=== PATIENT | female | born 1945 | race Caucasian/White ===

== ENCOUNTER → 2016-11-11 | Outpatient (CLI) | payer MEDICARE, OTHER | END | disposition home or self-care (01) | LOC: GMA 14:29 | PROVIDERS: ATTEND Nurse Practitioner Family | DX: R07.9 Chest pain, unspecified (principal) ==

== ENCOUNTER → 2016-12-16 | Outpatient (CLI) | payer MEDICARE, OTHER | END | disposition home or self-care (01) | LOC: GMAH 10:15 | PROVIDERS: ATTEND Family Medicine | DX: E78.00 Pure hypercholesterolemia, unspecified (principal) ==

== ENCOUNTER → 2017-09-01 | Outpatient (CLI) | payer MEDICARE, OTHER ==
--- NOTE | 2017-09-03 15:12 | MAM ---
EXAM DESCRIPTION: 3D Screening BILATERAL : Digital Mammography. CLINICAL HISTORY: 72 years Female SCREENING . No complaints. Sister with breast cancer. Postmenopausal. Taking HRT 5 or more years ago.. COMPARISON: 2-D digital screening bilateral studies on 08/25/2016 and 07/24/2015. Report from prior examination also reviewed. TECHNIQUE: Bilateral CC and MLO projection full-field images, 3-D tomosynthesis digital mammographic technique. Also bilateral synthesized CC/ MLO full-field images. CAD not utilized. FINDINGS: The breast parenchymal density pattern is: Heterogeneously dense breast tissue, which may obscure small masses. No skin thickening or nipple retraction bilateral solitary microcalcifications and coarse calcification in the left breast. Bilateral vascular calcifications. No focal, stellate mass or density, focal asymmetry , and no suspicious microcalcifications bilaterally. Stable mammograms compared to prior studies, taking into account differences in mammographic technique IMPRESSION: BI-RADS CATEGORY: 2 - BENIGN FINDINGS. FOLLOW UP: Routine digital bilateral screening, one year interval from August 2017. Written communication explaining the IMPRESSION and follow-up, will be mailed to the patient and referring health care provider. According to the [employer], yearly mammograms are recommended starting at age 40 and continuing as long as a woman is in good health. Any breast change noted on a breast self-exam should be reported promptly to the patient's healthcare provider. Breast MRI is recommended for women with an approximately 20-25% or greater lifetime risk of breast cancer, including women with a strong family history of breast or ovarian cancer and women who have been treated for Hodgkin's disease. A negative mammographic report should not delay tissue diagnosis in patients with significant clinical history or physical findings. Extremely dense breast tissue limits the sensitivity of digital mammography. Electronically signed by: David Corea MD 09/03/2017 3:10 PM [facility]
== END ==
LOC: MAMMO 11:14
PROVIDERS: ATTEND Family Medicine
DX: Z12.31 Encounter for screening mammogram for malignant neoplasm of breast (principal)
CPT/HCPCS: 77063; G0202

== ENCOUNTER → 2017-12-22 | Outpatient (CLI) | payer MEDICARE, OTHER | END | disposition home or self-care (01) | LOC: GMAH 11:59 | PROVIDERS: ATTEND Family Medicine | DX: E78.2 Mixed hyperlipidemia (principal); E03.8 Other specified hypothyroidism ==

== ENCOUNTER → 2018-01-04 | Outpatient (CLI) | payer MEDICARE, OTHER ==
--- NOTE | 2018-01-04 09:45 | RAD ---
EXAM DESCRIPTION: Knee,Left Complete CLINICAL HISTORY: 72 years, Female, PAIN IN LEFT KNEE COMPARISON: None TECHNIQUE: 4 views of the left knee including standing views FINDINGS: No fracture or dislocation. Bones appear normally mineralized with normal trabecular pattern. Mild narrowing of the medial compartment on frontal view. Lateral view shows normal position of the patella. No patellar spurring or enthesopathy. No suprapatellar knee joint effusion. Normal contour of quadriceps and patellar tendons. No patellar subluxation on patellar sunrise view. There is mild lateral tilt of the patella. Mild posterior medial patellar spurring is present. IMPRESSION: Negative for fracture or dislocation. Electronically signed by: Rory Giordano MD 01/04/2018 9:43 AM CDT
--- NOTE | 2018-01-04 09:47 | RAD ---
EXAM DESCRIPTION: Pelvis CLINICAL HISTORY: 72 years Female, PAIN IN RIGHT HIP PAIN IN LEFT COMPARISON: None. TECHNIQUE: Single frontal x-ray view of pelvis and hips FINDINGS: No fracture. No dislocation. Bones appear mildly osteopenic. Degenerative changes at the pubic symphysis. Iliolumbar ligament calcification is incidentally noted. Degenerative changes are prominent in the facets at L4-5 and L5-S1. IMPRESSION: Negative for fracture or dislocation. Electronically signed by: Rory Giordano MD 01/04/2018 9:45 AM CDT
--- NOTE | 2018-01-04 09:49 | RAD ---
EXAM DESCRIPTION: Knee,Right Complete CLINICAL HISTORY: 72 years, Female, PAIN IN RIGHT KNEE COMPARISON: None TECHNIQUE: 4 views of the right knee including standing views FINDINGS: No fracture or dislocation. Bones appear mildly osteopenic with slightly prominent trabecular pattern. Mildly narrowed medial compartment on frontal view. Lateral view shows normal position of the patella. Minimal posterior superior patellar spurring. No suprapatellar knee joint effusion. Normal contour of quadriceps and patellar tendons. Mild lateral patellar tilt without significant subluxation on patellar sunrise view. Mild posterior medial spurring and lateral marginal spurring of the patella. IMPRESSION: Negative for fracture or dislocation. Mild degenerative changes as described. Electronically signed by: Rory Giordano MD 01/04/2018 9:47 AM CDT
== END ==
LOC: RAD 08:32
PROVIDERS: ATTEND Orthopaedic Surgery
DX: M25.561 Pain in right knee (principal); M25.562 Pain in left knee; M25.551 Pain in right hip; M25.552 Pain in left hip

== ENCOUNTER → 2018-09-27 | Outpatient (CLI) | payer MEDICARE, OTHER ==
--- NOTE | 2018-09-28 14:53 | MAM ---
EXAM DESCRIPTION: 3D Screening BILATERAL : Digital Mammography. CLINICAL HISTORY: 73 years Female SCREENING . No complaints or personal history of breast cancer. Sister with breast cancer. Childbirth. Postmenopausal. Taking HRT.. Lifetime risk of developing breast cancer (Tyrer-Cuzick model)(%): 7.3. COMPARISON: Bilateral screening digital breast tomosynthesis 09/06/2017. TECHNIQUE: Bilateral CC and MLO projection full-field images, digital tomosynthesis mammographic technique. Bilateral digital 2-D full-field MLO images. CAD not available for tomosynthesis or 2-D images. FINDINGS: The breast parenchymal density pattern is: Heterogeneously dense breast tissue, which may obscure small masses. No skin thickening or nipple retraction. Large coarse calcifications associated with a soft tissue mass, posterior third of the left breast. Most likely a degenerating fibroadenoma, stable since the prior study. Small vascular calcifications. No new focal, stellate mass or density, focal asymmetry , and no suspicious microcalcifications bilaterally. Stable mammograms compared to prior study. IMPRESSION: Benign exam. BIRAD CATEGORY: 2 BENIGN FINDINGS. RECOMMENDATIONS: FOLLOW UP: Routine digital bilateral mammographic screening, one year interval from August 2017. Written communication explaining the IMPRESSION and follow-up, will be mailed to the patient and referring health care provider. According to the [employer], yearly mammograms are recommended starting at age 40 and continuing as long as a woman is in good health. Any breast change noted on a breast self-exam should be reported promptly to the patient's healthcare provider. Breast MRI is recommended for women with an approximately 20-25% or greater lifetime risk of breast cancer, including women with a strong family history of breast or ovarian cancer and women who have been treated for Hodgkin's disease. A negative mammographic report should not delay tissue diagnosis in patients with significant clinical history or physical findings. Extremely dense breast tissue limits the sensitivity of digital mammography. Electronically signed by: David Corea MD 09/28/2018 10:09 AM [facility]
== END ==
LOC: MAMMO 10:26
PROVIDERS: ATTEND Family Medicine
DX: Z12.31 Encounter for screening mammogram for malignant neoplasm of breast (principal)

== ENCOUNTER → 2019-04-28 | Outpatient (CLI) | payer MEDICARE, OTHER | LOC: GMA MATASK 10:51 | PROVIDERS: ATTEND Family Medicine | DX: I10 Essential (primary) hypertension (principal) ==

== ENCOUNTER → 2020-05-03 | Outpatient (CLI) | payer MEDICARE, OTHER | LOC: GMA MATASK 14:52 | PROVIDERS: ATTEND Family Medicine | DX: I10 Essential (primary) hypertension (principal); E03.9 Hypothyroidism, unspecified; E78.00 Pure hypercholesterolemia, unspecified ==

== ENCOUNTER → 2020-06-21 | Outpatient (CLI) | payer MEDICARE, OTHER ==
--- NOTE | 2020-06-26 17:00 | MAM ---
EXAM DESCRIPTION: 3D Screening BILATERAL : Digital Mammography. CLINICAL HISTORY: 74 years Female ANNUAL SCREENING . No complaints. Female sibling with breast cancer.. Menarche age 12. Childbirth age 16. Menopause age 39. HRT less than 5 years ago. Lifetime risk of developing breast cancer (Tyrer-Cuzick model)(%): 7.5. COMPARISON: Bilateral screening digital breast tomosynthesis September 2018 and August 2017.. TECHNIQUE: Bilateral CC and MLO projection full-field images, digital tomosynthesis mammographic technique. Bilateral digital 2-D full-field MLO images. CAD available for 2-D images. FINDINGS: The breast parenchymal density pattern is: Heterogeneously dense breast tissue, which may obscure small masses. No skin thickening or nipple retraction. 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 Bilateral solitary microcalcifications. Vascular calcifications. Anterior dense fibroglandular tissues at 6:00 in the left breast are stable. No new focal, stellate mass or density, focal asymmetry , and no suspicious microcalcifications bilaterally. Stable mammograms compared to prior study. IMPRESSION: Benign exam. BIRAD CATEGORY: 2 BENIGN FINDINGS. RECOMMENDATIONS: FOLLOW UP: Routine digital bilateral mammographic screening, one year interval from June 2020. Written communication explaining the IMPRESSION and follow-up, will be mailed to the patient and referring health care provider. According to the [employer], yearly mammograms are recommended starting at age 40 and continuing as long as a woman is in good health. Any breast change noted on a breast self-exam should be reported promptly to the patient's healthcare provider. Breast MRI is recommended for women with an approximately 20-25% or greater lifetime risk of breast cancer, including women with a strong family history of breast or ovarian cancer and women who have been treated for Hodgkin's disease. A negative mammographic report should not delay tissue diagnosis in patients with significant clinical history or physical findings. Extremely dense breast tissue limits the sensitivity of digital mammography. Electronically signed by: David Corea MD 06/26/2020 4:59 PM CDT
== END ==
LOC: MAMMO 10:30
PROVIDERS: ATTEND Family Medicine
DX: Z12.31 Encounter for screening mammogram for malignant neoplasm of breast (principal)